=== PATIENT | female | born 1960 | race Caucasian/White ===

== ENCOUNTER 2016-11-14 12:20 | Emergency (ER) | payer MEDICAID ==
--- NOTE | 2016-11-14 15:48 | Emergency Department Report ---
ED Fall HPI - General Chief Complaint: Fall Stated Complaint: FELL/RT ANKLE/LEG/SHOULDER PAIN Time Seen by Provider: 11/14/16 15:46 Source: patient, family Mode of arrival: Ambulatory - History of Present Illness Initial Comments: Patient here complaining in that she fell yesterday. She says she is moving and she was on a ladder at home and she fell off the ladder 7 steps. She is complaining of pain to her right lower extremity to include thigh, knee and ankle. She is also complaining of pain to her right shoulder and lower back. She says she has some bruising to her right shoulder and right knee. Tetanus vaccine is up-to-date. Pain is 710 and aching. She said her friend drove her to the emergency room. She says she took [id number] pain medication for pain but it's not taken her pain away. Denies any loss of bowel or bladder control or any numbness or tingling to extremities. Denies any chest pain. Denies any head injury, headache or neck pain. His dizziness or fainting feeling prior to falling. Patient said she was driving yesterday when she felt her right leg trembling while she was driving. He reports that fall was accidental. Pain is better with rest and worse with movement MD Complaint: fall, other (pain to multiple sites) -: Last night Fall From: other (fall from ladder, 7 steps) When Fall Occurred: other (last night) Fall Witnessed: yes, by bystander Place Fall Occurred: home Loss of Consciousness: none Prolonged Down Time?: yes Symptoms Prior to Fall: none Location: back Location - Extremities: Right: Shoulder, Thigh, Knee, Ankle Severity: severe Severity scale (0 -10): 10 Quality: aching Context: tripped/slipped Associated Symptoms: denies: headache, neck pain, numbness, weakness, chest paint, shortness of breath, abdominal pain, hematuria, unable to walk, lightheaded, vertigo, confusion - Related Data Previous Rx's Medication Instructions Recorded Last Taken Type Cephalexin [Keflex] 500 mg PO Q8HR #21 cap 11/14/16 Unknown Rx Cyclobenzaprine [Flexeril] 10 mg PO TID PRN #15 tablet 11/14/16 Unknown Rx Ibuprofen [Motrin] 600 mg PO Q8H PRN #15 tablet 11/14/16 Unknown Rx Allergies Allergy/AdvReac Type Severity Reaction Status Date / Time No Known Allergies Allergy Unverified 11/14/16 13:04 ED Review of Systems ROS: Stated complaint: FELL/RT ANKLE/LEG/SHOULDER PAIN Other details as noted in HPI Comment: All other systems reviewed and negative Constitutional: denies: chills, fever, weakness Eyes: denies: vision change ENT: denies: epistaxis Respiratory: no symptoms reported Cardiovascular: denies: chest pain, palpitations, dyspnea on exertion, edema, syncope Genitourinary: denies: urgency, dysuria, frequency, hematuria Musculoskeletal: back pain, joint swelling, arthralgia Skin: other (bruising) Neurological: abnormal gait (due to back pain and rle injury). denies: headache , weakness ED Past Medical Hx - Past Medical History Previous Medical History?: Yes Hx Hypertension: Yes - Surgical History Past Surgical History?: Yes Additional Surgical History: bilateral total knee replacement,total hysterectomy - Social History Smoking Status: Never Smoker Substance Use Type: None - Medications Home Medications: Home Medications Medication Instructions Recorded Confirmed Last Taken Type Cephalexin [Keflex] 500 mg PO Q8HR #21 cap 11/14/16 Unknown Rx Cyclobenzaprine [Flexeril] 10 mg PO TID PRN #15 tablet 11/14/16 Unknown Rx Ibuprofen [Motrin] 600 mg PO Q8H PRN #15 tablet 11/14/16 Unknown Rx ED Physical Exam - General Limitations: No Limitations General appearance: alert, in no apparent distress - Head Head exam: Present: atraumatic, normocephalic, normal inspection - Expanded Head Exam Expanded Head exam: Absent: laceration, abrasion, contusion, hematoma, racoon eyes, boyd's sign, general tenderness, tenderness of temporal artery, CSF rhinorrhea , CSF otorrhea - Eye Eye exam: Present: normal appearance, PERRL, EOMI. Absent: nystagmus, periorbital swelling, periorbital tenderness Pupils: Present: normal accommodation - ENT ENT exam: Present: normal exam, normal orophraynx, mucous membranes moist - Neck Neck exam: Present: normal inspection, full ROM. Absent: tenderness, meningismus, lymphadenopathy - Expanded Neck Exam Expanded Neck exam: Absent: tenderness, midline deformity, anterior neck swelling, tracheal deviation - Respiratory Respiratory exam: Present: normal lung sounds bilaterally. Absent: respiratory distress, chest wall tenderness - Cardiovascular Cardiovascular Exam: Present: regular rate, normal rhythm, normal heart sounds - GI/Abdominal GI/Abdominal exam: Present: soft, normal bowel sounds. Absent: distended, tenderness, guarding, rebound, rigid - Expanded Upper Extremity Exam Right Shoulder Exam: Present: normal inspection, full ROM, abrasion. Absent: tenderness, swelling, laceration, ecchymosis, deformity, crepidus, dislocation, erythema, tenderness over AC joint Upper Arm exam: Present: normal inspection, full ROM. Absent: tenderness, swelling, abrasion, laceration, ecchymosis, deformity, crepidus, dislocation, erythema Elbow exam: Present: normal inspection, full ROM. Absent: tenderness - Expanded Lower Extremity Exam Right Hip exam: Present: normal inspection, full ROM, pelvic stability. Absent: tenderness, swelling, abrasion, laceration, ecchymosis, deformity, crepidus, dislocation, erythema, external rotation, internal rotation, shortening Upper Leg exam: Present: normal inspection, full ROM, tenderness (anteriorly). Absent: swelling, abrasion, laceration, ecchymosis, deformity, crepidus, dislocation, erythema Knee exam: Present: full ROM, tenderness (Cearley), abrasion (2 abrasions to right knee), full knee extension. Absent: normal inspection, swelling, laceration, ecchymosis, deformity, crepidus, dislocation, erythema, effusion, pain w/ pronation/supination, pain/laxity with valgus, pain/laxity with varus Lower Leg exam: Present: normal inspection, full ROM. Absent: tenderness, swelling, abrasion, laceration, ecchymosis, deformity, crepidus, dislocation, erythema, palpable cord, Devonte's sign Ankle exam: Present: full ROM (limited range of motion to right ankle due to swelling and pain), tenderness (right outer ankle), swelling (right outer ankle) . Absent: normal inspection, abrasion, laceration, crepidus, dislocation, erythema Foot/Toe exam: Present: normal inspection, full ROM. Absent: tenderness, swelling, abrasion, laceration, ecchymosis, deformity, crepidus, dislocation, erythema, amputation, puncture wound, foreign body, calcaneal tenderness, tenderness at base of 5th metatarsal, nail avulsion, subungual hematoma Neuro vascular tendon exam: Present: no vascular compromise. Absent: pulse deficit, abnormal cap refill, sensory deficit, tendon deficit, extremity cold to touch, pallor, abnormal 2-point discrimination, decreased fine/light touch, foot drop, peroneal nerve deficit, significant pain with passive ROM of distal joint Gait: Positive: unable to bear weight - Back Exam Back exam: Present: normal inspection, full ROM, tenderness (midline vertebrae lower back), vertebral tenderness (lumbar spine). Absent: CVA tenderness (R), CVA tenderness (L), muscle spasm, paraspinal tenderness, rash noted - Expanded Back Exam Expanded Back exam: Absent: saddle anesthesia Back exam: Negative Straight Leg Raising: Left, Right - Neurological Exam Neurological exam: Present: alert, oriented X3, abnormal gait (normal gait to right lower extremity due to fall with ankle swelling and pain, knee pain and lower back pain.). Absent: reflexes normal - Expanded Neurological Exam Expanded Neurological exam: Absent: innattentive, memory loss-remote event, memory loss- recent event, ataxia, receptive aphasia, expressive aphasia, total aphasia, tremor, protecting the airway Patient oriented to: Present: person, place, time Speech: Present: fluid speech Cranial nerves: EOM's Intact: Normal, Gag Reflex: Normal, Tongue Deviation: Normal, Nystagmus: Normal, Facial Sensation: Normal Cerebellar function: Romberg: Normal Upper motor neuron: Pronator Drift: Normal, Sensory Extinction: Normal Motor strength exam: RUE: 5, LUE: 5, RLE: 5, LLE: 5 DTR: bicep (R): 2+, bicep (L): 2+, tricep (R): 2+, tricep (L): 2+, knee (R): 2+ , knee (L): 2+, ankle (R): 2+, ankle (L): 2+ Best Eye Response (Kennett): (4) open spontaneously Best Motor Response (Tung): (6) obeys commands Best Verbal Response (Kennett): (5) oriented Tung Total: 15 - Psychiatric Psychiatric exam: Present: normal affect, normal mood - Skin Skin exam: Present: warm, dry, abrasion (superficial abrasion to right shoulder , and 2 small abrasion to right knee.) ED Course Vital Signs 11/14/16 12:58 Temperature 98.3 F Pulse Rate 80 Respiratory 18 Rate Blood Pressure 120/87 O2 Sat by Pulse 98 Oximetry - Reevaluation(s) Reevaluation #1: 11/14/16 16:42 Patient given Dilaudid 1 mg IM for pain with Zofran 4 mg ODT to prevent nausea. She is also given booster's vaccine to update tetanus and abrasions cleansed with normal saline and topical Neosporin placed the fight.Awaiting multiple x- rays. Reevaluation #2: 11/14/16 18:14 Patient received Decadron 10 mg IM and Toradol 60 mg IM due to continued back pain but she voice that her back pain has been relieved. - Orthopedic Splinting/Casting Injury #1 Side: right Lower Extremity Injury Location: ankle Lower Extremity Immobilizer: stirrup splint Other Orthopedic Equipment: crutches Additional Comments: Patient with right ankle sprain. Ankles therapist with crutches. Patient with good color, movement, sensation and temperature to right lower extremity is post -splint placement ED Medical Decision Making - Radiology Data Radiology results: report reviewed X-ray of right shoulder reveals no acute abnormality. X-ray of lumbar spine revealed mild Disc narrowing at L5 to S1. Otherwise, negative lumbar spine. X-ray of right knee revealed no acute abnormalities. No soft tissue or joint effusion. Joint spaces are maintained. Total right knee prosthesis is in place. X-ray of right femur reveals no acute bony or soft tissue abnormalities noted. X-ray of right ankle reveals no acute bony abnormality noted. Soft tissue swelling laterally around the ankle. 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 Ankle mortise is intact - Medical Decision Making ED course: Patient here presented emergency room reporting that she fell last night off a lot ladder. She says she has been moving and she was on the ladder putting things in place and she slipped and fell off 7 steps. She is complaining of right lower extremity pain and right shoulder pain and back pain. X-rays were done and did not show any bony abnormalities but she did have soft tissue swelling to her right ankle. She also had some disc space narrowing to her lumbar spine. The radiology reports section for details. Patient was given Dilaudid one milligrams IM and Zofran 4 program ODT for pain which did not completely relieve her pain so she was given Toradol 60 mg IM and Decadron 10 mg IM which she says she felt much better. Pt Able to ambulate after her pain medication with minimal pain. Patient also have multiple abrasion one to right shoulder into to her right knee. Area cleansed with normal saline and Neosporin ointment placed the site and left open to air. She updated on her tetanus shot. With diagnosis of accidental fall off ladder, lumbar pain, midline, arthralgia multiple sites, right ankle sprain and abrasions multiple sites. Diagnosis and treatment plan explained to patient and she voices understanding. Patient placed in a right ankle stirrup and given crutches with instructions. She is neurovascularly intact after splint placed. Discussed the patient that she'll need to follow-up with orthopedic doctor and rice protocol explained. Discharged home with her family prescription for Motrin, Flexeril and Keflex. She does have a primary care physician so told her to follow up with her primary care physician in 2 days. Critical care attestation.: If time is entered above; I have spent that time in minutes in the direct care of this critically ill patient, excluding procedure time. ED Disposition Clinical Impression: Abrasions of multiple sites, Arthralgia of multiple sites Accidental fall from ladder Qualifiers: Encounter type: initial encounter Qualified Code(s): W11.XXXA - Fall on and from ladder, initial encounter Right ankle sprain Qualifiers: Encounter type: initial encounter Involved ligament of ankle: unspecified ligament Qualified Code(s): S93.401A - Sprain of unspecified ligament of right ankle, initial encounter Back pain Qualifiers: Back pain location: low back pain Chronicity: acute Back pain laterality: midline Sciatica presence: without sciatica Qualified Code(s): M54.5 - Low back pain Disposition: DC-01 TO HOME OR SELFCARE Is pt being admited?: No Does the pt Need Aspirin: No Condition: Stable Instructions: Arthralgia (ED), Knee Pain (ED), Knee Exercises (GEN), Abrasion ( ED), Fall Prevention (ED), Acute Low Back Pain (ED), Ankle Sprain (ED), Ankle Stirrup Splint (ED), Ankle Exercises (GEN), RICE Therapy (ED) Additional Instructions: Please follow up with orthopedic doctor as instructed. Please rest, ice, compress and elevate affected area Splint on until seen by orthopedic doctor Follow-up with primary care physician Do not operate heavy machinery or drive motor vehicle while taking Flexeril as this medication will make you drowsy. Prescriptions: Cephalexin [Keflex] 500 mg PO Q8HR #21 cap Cyclobenzaprine [Flexeril] 10 mg PO TID PRN #15 tablet PRN Reason: Muscle Spasm Ibuprofen [Motrin] 600 mg PO Q8H PRN #15 tablet PRN Reason: Pain Referrals: PRIMARY CAREMD [Primary Care Provider] - 2-3 Days DAINA MEMBRENO MD [Staff Physician] - 2-3 Days Forms: Accompanied Note, Work/School Release Form(ED)
[2016-11-14] MEDS ORDERED: ZOFRAN ODT PO ONE (16:37)
[2016-11-14] MEDS ORDERED: DILAUDID IM ONE (16:37)
[2016-11-14] MEDS ORDERED: BOOSTRIX IM ONE (16:37)
[2016-11-14] MEDS ORDERED: TRIPLE ANTIBIOTIC TP ONE ×2 (16:37→19:18)
[2016-11-14] MEDS ORDERED: TORADOL IM ONE (17:37)
[2016-11-14] MEDS ORDERED: DECADRON IM ONE (17:37)
--- NOTE | 2016-11-14 18:04 | XRay Report ---
FINAL REPORT EXAM: XR ANKLE 3+V RT HISTORY: fall with rt ankle swelling and pain TECHNIQUE: AP, lateral, and oblique views of the right ankle PRIORS: None. FINDINGS: There is no evidence for acute fracture or dislocation. Moderate swelling laterally is seen. No radiopaque foreign bodies are seen. The ankle mortise is intact. The joint spaces are maintained. In the distal tibia centrally, there is a lytic and sclerotic focus measuring 6.2 cm in length. It measures 2.1 x 2.2 cm in diameter and has a defined sclerotic border. The serpiginous sclerotic areas within it suggests a probable bone infarct. IMPRESSION: No acute bony abnormality noted. Soft tissue swelling laterally around the ankle. 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
--- NOTE | 2016-11-14 18:06 | XRay Report ---
FINAL REPORT EXAM: XR FEMUR 2+V RT HISTORY: fall with pain to rt femur TECHNIQUE: AP and lateral views of the right femur PRIORS: None. FINDINGS: There is no evidence for acute fracture or dislocation. A total knee prosthesis is in place with a intramedullary billy component in the distal femur. At the level of this billy, there is cortical deformity of the femur suggesting remote healed fracture. No soft tissue swelling or radiopaque foreign bodies are seen. Bony mineralization is normal and joint spaces are maintained. There is serpiginous sclerotic findings in the subtrochanteric region of the proximal femoral shaft. The findings may be consistent with a bone infarct. IMPRESSION: No acute bony or soft tissue abnormality noted. Postsurgical changes related to a right knee replacement
--- NOTE | 2016-11-14 18:07 | XRay Report ---
FINAL REPORT EXAM: XR KNEE 3V RT HISTORY: Fall with RT knee pain and abrasion TECHNIQUE: AP, oblique, and lateral views of the right knee PRIORS: None. FINDINGS: No acute fracture or dislocation is seen. There is a total right knee prosthesis in place in satisfactory position and alignment. No radiographic evidence for loosening is seen. There is cortical deformity involving the distal femoral shaft suggesting a remote healed fracture. The soft tissues are unremarkable with no evidence for suprapatellar joint effusion. Joint spaces are maintained and bony mineralization is normal. IMPRESSION: Negative views of the right knee. Total right knee prosthesis in place.
--- NOTE | 2016-11-14 18:09 | XRay Report ---
FINAL REPORT EXAM: XR SPINE LUMBOSACRAL 2-3V HISTORY: fall with lower back pain TECHNIQUE: AP, lateral and coned-down views of the lumbar spine PRIORS: None. FINDINGS: The vertebral body heights are well maintained. Mild narrowing of the L5-S1 disc space is seen. The alignment is normal. No evidence for spondylolysis or spondylolisthesis is seen. Pedicles are intact bilaterally at all levels. The paraspinal soft tissues are unremarkable. IMPRESSION: Mild disc space narrowing L5-S1. Otherwise, negative lumbar spine.
--- NOTE | 2016-11-14 18:11 | XRay Report ---
FINAL REPORT EXAM: XR SHOULDER 2+V RT HISTORY: fall with rt shoulder pain and abrasion TECHNIQUE: AP, Y, and oblique views of the right shoulder PRIORS: None. FINDINGS: There is no evidence of acute fracture or dislocation. Joint spaces are maintained and bony mineralization is normal. Soft tissues are unremarkable. IMPRESSION: No acute abnormality identified in the right shoulder.
[2016-11-14 19:10] VITALS: BP 118/78
== END 2016-11-14 19:15 | disposition home or self-care (01) ==
LOC: ED 12:20
DX: S93.401A Sprain of unspecified ligament of right ankle, initial encounter (principal); M54.5 Low back pain; I10 Essential (primary) hypertension; Z96.653 Presence of artificial knee joint, bilateral; W11.XXXA Fall on and from ladder, initial encounter; Y93.89 Activity, other specified; Y99.8 Other external cause status; Y92.009 Unspecified place in unspecified non-institutional (private) residence as the place of occurrence of the external cause
CPT/HCPCS: 29515; 72100; 73030; 73552; 73562; 73610; 90471; 90715; 96372; 99283; J1100; J1170; J1885; A6250; Q0162